=== PATIENT | female | born 1980 | race Caucasian/White ===

== ENCOUNTER 2019-01-21 12:56 | Inpatient (IN) ==
[2019-01-21] MEDS ORDERED: DULCOLAX PR PRN (17:15)
[2019-01-21] MEDS ORDERED: TUBERSOL ID ONE (17:15)
[2019-01-21] MEDS ORDERED: NICOTINE GUM BUCCAL PRN (17:15)
[2019-01-21] MEDS ORDERED: MAALOX PLUS LIQUID PO PRN (17:15)
[2019-01-21] MEDS ORDERED: ZOFRAN IV PRN (17:15)
[2019-01-21] MEDS ORDERED: IMODIUM PO PRN ×2 (17:15)
[2019-01-21] MEDS ORDERED: ZOFRAN IM PRN (17:15)
[2019-01-21] MEDS ORDERED: PHENOBARBITAL IV PRN (17:15)
[2019-01-21] MEDS ORDERED: SENOKOT PO PRN (17:15)
[2019-01-21] MEDS ORDERED: D5W 1,000 ML IV PRN (17:15)
[2019-01-21] MEDS ORDERED: NICODERM PATCH TD PRN (17:15)
[2019-01-21 18:27] LABS: HEMATOCRIT 29.2 % (37.0-47.0); HEMOGLOBIN 9.5 g/dL (12.0-16.0); MCH 25.4 PG (27-31); MCHC 32.5 g/dL (33-37); MCV 78.1 FL (81-99); MPV 10.4 FL (7.4-10.4); RBC 3.74 XMIL (4.2-5.4); RDW 21.4 % (11.5-14.5); WBC 9.24 X1000 (4.8-10.8)
[2019-01-21 18:37] LABS: UR AMPHETAMINES QUAL NONE DETECTED (NONE DETECT); UR BARBITUATES QUAL NONE DETECTED (NONE DETECT); UR BENZODIAZEPIN QUAL PRESUMPTIVE POSITIVE (NONE DETECT); UR CANNABINOIDS QUAL NONE DETECTED (NONE DETECT); UR COCAINE QUAL NONE DETECTED (NONE DETECT); UR METHADONE QUAL NONE DETECTED (NONE DETECT); UR METHAMPHETAMINE QUAL NONE DETECTED (NONE DETECT); UR OPIATES QUAL PRESUMPTIVE POSITIVE (NONE DETECT); UR OXYCODONE QUAL NONE DETECTED (NONE DETECT); UR PCP QUAL NONE DETECTED (NONE DETECT); UR PROPOXYPHENE QUAL NONE DETECTED (NONE DETECT); UR TCA QUAL NONE DETECTED (NONE DETECT)
[2019-01-21 18:46] LABS: INR 1.34; PROTIME 17.2 Seconds (11.0-16.0)
[2019-01-21 19:03] LABS: AGAP 13; ALBUMIN 2.5 g/dL (3.5-5.0); ALKALINE PHOSPHATASE 122 U/L (32-104); AMYLASE 63 U/L (20-200); BUN 8 mg/dL (8-22); CALCIUM 7.4 mg/dL (8.8-10.2); CHLORIDE 97 mmol/L (98-107); COSMO 269; CREATININE 0.8 mg/dL (0.5-0.9); ESTIMATED GFR > 60; GLUCOSE 115 mg/dL (70-104); GOT 77 U/L (10-30); GPT 41 U/L (10-36); LIPASE 31 U/L (13-60); POTASSIUM 3.7 mmol/L (3.5-5.1); SODIUM 135 mmol/L (136-145); TCO2 25 mmol/L (25-35); TOTAL PROTEIN 5.6 g/dL (6.3-8.3)
[2019-01-21 19:24] LABS: URINE SOURCE CLEAN CATCH
[2019-01-21 19:50] LABS: BILIRUBIN URINE 2+ (NEGATIVE); BLOOD URINE 3+ (NEGATIVE); CLARITY VERY CLOUDY (CLEAR); COLOR AMBER; GLUCOSE URINE NEGATIVE (NEGATIVE); KETONE URINE 1+(Small) mg/dL (NEGATIVE); LEUKOCYTES URINE 2+ (NEGATIVE); NITRITE URINE POSITIVE (NEGATIVE); PROTEIN URINE 2+(100 mg/dL) mg/dL (NEGATIVE); UROBILINOGEN URINE 8 mg/dL
[2019-01-21 19:53] LABS: URINE BACTERIA 2+ /HFP; URINE CAST NONE SEEN /LPF; URINE CRYSTAL CA OXALATE PRESENT /HPF; URINE EPITHELIAL CELLS <10 /HPF (<10); URINE RBC TNTC /HPF (<10); URINE YEAST NONE SEEN /HPF
[2019-01-21 19:54] LABS: URINE SMALL ROUND CELLS TRANSITIONAL PRESENT
[2019-01-21] MEDS: SEROQUEL PO PRN (21:56)
[2019-01-21] MEDS: MOTRIN PO PRN (21:56)
[2019-01-21] MEDS: TORADOL IV PRN (22:00)
[2019-01-21] MEDS: ZOFRAN ODT PO PRN (22:27)
[2019-01-22] MEDS ORDERED: BENTYL PO PRN (06:41)
[2019-01-22] MEDS ORDERED: SALINE LOCK IV FLUID XX ONE (06:41)
[2019-01-22] MEDS: PROTONIX PO SCH (07:38)
[2019-01-22] MEDS: FOLIC ACID PO SCH (08:49)
[2019-01-22] MEDS: LIBRIUM PO SCH ×3 (08:49→20:13)
[2019-01-22] MEDS: THERA M PLUS PO SCH (08:49)
[2019-01-22] MEDS: VITAMIN B-1 PO SCH (08:49)
[2019-01-22] MEDS ORDERED: M.V.I.-12 10 ML, FOLIC ACID 1 MG, MAGNESIUM SULFATE 1 GM, THIAMINE 100 MG in NS 1,000 ML IV ONE ×2 (09:00→19:00)
[2019-01-22] MEDS: TORADOL IV PRN ×2 (11:47→22:42)
[2019-01-22] MEDS: ROBAXIN PO PRN ×2 (11:47→22:42)
[2019-01-22] MEDS: PHENERGAN PO PRN (16:26)
[2019-01-22 17:43] LABS: BILIRUBIN URINE NEGATIVE (NEGATIVE); BLOOD URINE NEGATIVE (NEGATIVE); COLOR YELLOW; GLUCOSE URINE NEGATIVE (NEGATIVE); KETONE URINE NEGATIVE (NEGATIVE); LEUKOCYTES URINE 2+ (NEGATIVE); NITRITE URINE POSITIVE (NEGATIVE); PROTEIN URINE NEGATIVE (NEGATIVE); UROBILINOGEN URINE 1 mg/dL
[2019-01-22 17:58] LABS: CLARITY SLIGHTLY CLOUDY (CLEAR)
[2019-01-22 18:00] LABS: URINE BACTERIA 4+ /HFP; URINE CAST NONE SEEN /LPF; URINE CRYSTAL NONE SEEN /HPF; URINE EPITHELIAL CELLS <10 /HPF (<10); URINE SOURCE CLEAN CATCH; URINE WBC TNTC /HPF (<10); URINE YEAST NONE SEEN /HPF
[2019-01-22] MEDS ORDERED: SUBUTEX SL ONE ×2 (19:11→21:00)
[2019-01-22] MEDS: ZOSYN 3.375 GM in NS 50 ML IV SCH (20:09)
[2019-01-22] MEDS: SEROQUEL PO PRN (21:35)
--- NOTE | 2019-01-23 00:21 | PROGRESS NOTE ---
DATE: 01/22/2019 SUBJECTIVE: Patient notes overall she feels quite terrible. I checked on her again tonight. Notes that her symptoms have improved slightly, but still overall she is having muscle aches, myalgias, mild tremors, nausea. No real vomiting. Denies hematemesis, hematochezia. Is having some abdominal pain as well as dysuria. PHYSICAL EXAMINATION: Vital Signs: Reviewed and stable. General: Patient is awake, alert, currently in no respiratory distress, but obviously ill appearing secondary to withdrawal symptoms. HEENT: Normocephalic. Neck: Supple. Cardiovascular: Regular rate. No murmurs. Chest: Clear and nonlabored. Abdomen: Soft, nondistended, nontender. ASSESSMENT: 1. Nausea and vomiting. 2. Abdominal pain. 3. Myalgias. 4. Likely urinary tract infection. 5. Others. PLAN: We will continue patient in the hospital. Continue Librium taper. Continue counseling by myself. We will place her on low-dose of Subutex tonight. The patient has been on methadone in the past. Therefore, cannot go straight to Suboxone. We will also treat for urinary infection. cc: Gerhard Rodriguez MD
[2019-01-23] MEDS: LIBRIUM PO SCH ×4 (01:58→20:19)
[2019-01-23] MEDS: ZOSYN 3.375 GM in NS 50 ML IV SCH ×4 (01:59→20:19)
[2019-01-23] MEDS: PROTONIX PO SCH (06:19)
[2019-01-23] MEDS: ROBAXIN PO PRN (06:22)
[2019-01-23] MEDS: THERA M PLUS PO SCH ×2 (07:48→09:47)
[2019-01-23] MEDS: FOLIC ACID PO SCH ×2 (07:48→09:46)
[2019-01-23] MEDS: VITAMIN B-1 PO SCH ×2 (07:48→09:48)
[2019-01-23] MEDS: SYNTHROID PO SCH ×2 (07:48→09:47)
[2019-01-23] MEDS: TORADOL IV PRN ×2 (07:58→21:27)
[2019-01-23] MEDS: PHENERGAN PO PRN ×2 (08:09→13:54)
[2019-01-23] MEDS: NORCO-5 PO PRN ×2 (08:34→21:34)
[2019-01-23] MEDS: TYLENOL PO PRN (20:19)
[2019-01-23] MEDS ORDERED: CARDIZEM IV ONE (20:54)
--- NOTE | 2019-01-23 21:19 | Diag Imaging Result Doc PS360 ---
EXAM: CHEST-1 VIEW HISTORY: SEPSIS PROTOCOL TECHNIQUE: Chest single view COMPARISON: None. FINDINGS: The lungs are well expanded. The heart is not enlarged. The vessels are not distended. There are no infiltrates. No effusion identified. IMPRESSION: Negative exam. Electronically signed by Indra White 01/23/2019 9:16 PM
[2019-01-23 21:55] LABS: BASO# 0.04 X1000 (0.0-0.2); BASO% 0.2 % (0.0-0.8); EOS# 0.04 X1000 (0.0-0.7); EOS% 0.2 % (0.0-10.0); HEMATOCRIT 30.6 % (37.0-47.0); HEMOGLOBIN 9.8 g/dL (12.0-16.0); IMM GRAN# 0.04 X1000 (0.0-0.04); IMM GRAN% 0.2 % (0.0-0.5); LYMPH# 1.26 X1000 (1.2-3.4); LYMPH% 6.4 % (20.5-51.1); MCH 25.8 PG (27-31); MCV 80.5 FL (81-99); MONO% 1.5 % (1.7-9.3); MPV 11.1 FL (7.4-10.4); NEUT# 18.08 X1000 (1.4-6.5); NEUT% 91.5 % (42.2-75.2); PLT 347 X1000 (130-400); RDW 21.9 % (11.5-14.5); WBC 19.76 X1000 (4.8-10.8)
[2019-01-23 22:01] LABS: AGAP 14; ALBUMIN 2.3 g/dL (3.5-5.0); ALKALINE PHOSPHATASE 120 U/L (32-104); BUN 18 mg/dL (8-22); CALCIUM 7.2 mg/dL (8.8-10.2); CHLORIDE 104 mmol/L (98-107); CK PROFILE 29 U/L (24-173); COSMO 278; CREATININE 0.9 mg/dL (0.5-0.9); ESTIMATED GFR > 60; GLUCOSE 165 mg/dL (70-104); GOT 42 U/L (10-30); GPT 31 U/L (10-36); POTASSIUM 3.8 mmol/L (3.5-5.1); SODIUM 136 mmol/L (136-145); TCO2 18 mmol/L (25-35); TOTAL PROTEIN 5.1 g/dL (6.3-8.3)
[2019-01-23 22:06] LABS: INR 1.4; PROTIME 17.9 Seconds (11.0-16.0)
[2019-01-23 22:07] LABS: PTT 39.3 Seconds (22.3-41.8)
[2019-01-23 22:09] LABS: BANDS 7 % (0-1); SEGS 85 % (42-75)
[2019-01-23 22:10] LABS: ANISOCYTOSIS 2+; LYMPHS 7 % (21-51); MICROCYTOSIS 2+; MONO 2 % (1-9); POIKILOCYTOSIS 2+; POLYCHROM 2+; TARGET CELLS 1+
[2019-01-23 22:11] LABS: OVALOCYTES 1+
--- NOTE | 2019-01-24 01:35 | PROGRESS NOTE ---
DATE: 01/23/2019 SUBJECTIVE: Patient states she still feels terrible, still has muscle aches. Has some difficulty urinating, but overall does think that she is feeling somewhat better. PHYSICAL EXAMINATION: Vital Signs: Temperature 98.9 degrees, pulse 89, respiratory 18, BP 113/82. General: Patient is awake, alert. She is pleasant to talk with. HEENT: Normocephalic. Neck: Supple. Cardiovascular: Regular rate. Chest: Clear and nonlabored. Abdomen: Soft, nondistended. Extremities: Moves all extremities. Neurologic: No changes. ASSESSMENT: 1. Gram-negative rods urinary tract infection. Urine currently is growing gram-negative rods. We will continue Zosyn. 2. Alcohol abuse, withdrawal and stabilization. Continue to wean high-dose Librium taper. Continue counseling. cc: Gerhard Rodriguez MD
[2019-01-24] MEDS: LIBRIUM PO SCH ×4 (02:42→17:52)
[2019-01-24] MEDS: ZOSYN 3.375 GM in NS 50 ML IV SCH ×4 (02:43→20:31)
[2019-01-24] MEDS: PROTONIX PO SCH ×2 (06:01→06:04)
[2019-01-24] MEDS: FOLIC ACID PO SCH (08:15)
[2019-01-24] MEDS: SYNTHROID PO SCH (08:15)
[2019-01-24] MEDS: VITAMIN B-1 PO SCH (08:15)
[2019-01-24] MEDS: THERA M PLUS PO SCH (08:16)
[2019-01-24] MEDS: NORCO-5 PO PRN ×2 (08:18→17:52)
[2019-01-24] MEDS: PHENERGAN PO PRN (17:52)
--- NOTE | 2019-01-24 18:03 | PROGRESS NOTE ---
DATE: 01/24/2019 SUBJECTIVE: Patient states she is feeling a little bit better. She is having no tremors. Alcohol withdrawal symptoms have improved. Still having some low-grade fevers. No chills. Still having lots of back pain from her recent fracture. PHYSICAL EXAMINATION: Vital Signs: Temperature 97, pulse 109, respiratory rate 18, BP 100/76. General: Patient is awake. She is in no current respiratory distress. HEENT: Normocephalic. Neck: Supple. CARDIOVASCULAR: Regular rate. No murmurs. Chest: Clear, nonlabored. Abdomen: Soft, nondistended. Extremities: Moves all extremities. She does have lumbar back pain. ASSESSMENT: 1. E coli urinary tract infection. We will continue Zosyn. 2. L3, L4 lumbar fracture with resultant pain. 3. Nausea and vomiting, resolved. 4. Abdominal pain. 5. Myalgias. 6. Tremors. 7. Paresthesias. 8. Paroxysmal sweating. 9. Alcohol abuse, withdrawal and stabilization. 10. Chronic anxiety, depression. PLAN: We will continue patient in the hospital. Continue to wean Librium. Will use [place] p.r.n. and will follow. cc: Gerhard Rodriguez MD
--- NOTE | 2019-01-24 18:55 | HISTORY AND PHYSICAL ---
CHIEF COMPLAINT: Nausea and vomiting. HISTORY OF PRESENT ILLNESS: The patient is a 39-year-old female who presented to [facility] secondary to nausea, vomiting, abdominal pain, myalgias, tremors and paresthesias. She notes that she has been drinking heavily and has been attempting to stop. SOCIAL HISTORY: She is , she is unemployed. Lives at home in [place], [place]. PAST MEDICAL HISTORY: She was recently seen at [facility] for pancreatitis in 09/2018. Also found to have stress fractures at L3 and L4. This is nonsurgical. She has a history of DTs and psychiatric hospitalizations. She fell last week, fracturing her L3 and L4. History of blackouts, head injuries, concussions and seizures, all alcohol related. History of pancreatitis, alcohol related. Chronic anxiety and depression. MEDICATIONS: Multivitamins, Synthroid. ALLERGIES: No known drug allergies. REVIEW OF SYSTEMS: CIWA score is 24 secondary to nausea, vomiting, abdominal pain, 30-pound weight loss over the past month or 2, auditory and visual hallucinations, anxiety, agitation, tachycardia, elevated blood pressure, tremors, myalgias, history of seizures and blackouts, history of blood in her stools secondary to gastritis from alcohol. Denies any headaches, blurred vision or change in her vision. Denies any focalized numbness, tingling or weakness in her extremities. Denies dysuria. No frequency or urgency. Denies constipation, melena or hematochezia. SUBSTANCE ABUSE HISTORY: The patient has been in detoxification multiple times over the past 14 years. She has had several psychiatric hospitalizations. She was just seen in the ER due to alcohol-related injuries. She is unemployed secondary to her alcoholism. Started drinking at age 29, currently is drinking up to 2 fifths of rum per day. FAMILY HISTORY: Noncontributory. PHYSICAL EXAMINATION: VITAL SIGNS: Reviewed and stable. GENERAL: The patient is awake, alert, currently in no respiratory distress. HEENT: Normocephalic, atraumatic. RYANN. NECK: Supple. No JVD. CARDIOVASCULAR: Regular rate. No murmurs. CHEST: Clear, nonlabored. No crackles. ABDOMEN: Soft, nondistended, nontender. NEUROLOGIC: No focal changes. ASSESSMENT: 1. Nausea and vomiting. 2. Abdominal pain. 3. Myalgias. 4. Paresthesias. 5. Tremors. 6. Alcohol abuse, withdrawal and stabilization. 7. Chronic anxiety and depression. PLAN: We will admit the patient to the hospital, high-dose Librium taper, symptomatic medications as needed. The patient appears to have a urinary infection. We will check a culture, place her on antibiotics. We will use Toradol for her L3-L4 fracture, and we will follow. cc: Gerhard Rodriguez MD
[2019-01-24] MEDS: SEROQUEL PO PRN (20:31)
[2019-01-24] MEDS: ATARAX PO PRN (22:58)
[2019-01-25] MEDS: ZOSYN 3.375 GM in NS 50 ML IV SCH ×2 (02:20→08:48)
[2019-01-25] MEDS: PHENERGAN PO PRN (04:47)
[2019-01-25] MEDS: NORCO-5 PO PRN ×2 (04:47→10:53)
[2019-01-25] MEDS: PROTONIX PO SCH (06:20)
[2019-01-25 07:07] LABS: HEMOGLOBIN 8.3 g/dL (12.0-16.0); MCH 25.6 PG (27-31); MCHC 31.9 g/dL (33-37); MCV 80.2 FL (81-99); MPV 11.3 FL (7.4-10.4); RBC 3.24 XMIL (4.2-5.4); RDW 22.4 % (11.5-14.5); WBC 5.73 X1000 (4.8-10.8)
[2019-01-25 07:59] LABS: AGAP 9; ALBUMIN 2.1 g/dL (3.5-5.0); ALKALINE PHOSPHATASE 119 U/L (32-104); BUN 11 mg/dL (8-22); CHLORIDE 107 mmol/L (98-107); COSMO 275; CREATININE 0.6 mg/dL (0.5-0.9); ESTIMATED GFR > 60; GLUCOSE 69 mg/dL (70-104); GOT 30 U/L (10-30); GPT 23 U/L (10-36); MAGNESIUM 1.6 mg/dL (1.5-2.7); POTASSIUM 3.6 mmol/L (3.5-5.1); SODIUM 139 mmol/L (136-145); TCO2 23 mmol/L (25-35); TOTAL PROTEIN 4.8 g/dL (6.3-8.3)
[2019-01-25] MEDS: THERA M PLUS PO SCH (08:47)
[2019-01-25] MEDS: VITAMIN B-1 PO SCH (08:47)
[2019-01-25] MEDS: FOLIC ACID PO SCH (08:47)
[2019-01-25] MEDS: SYNTHROID PO SCH (08:47)
[2019-01-25] MEDS: LIBRIUM PO SCH (08:47)
[2019-01-25] MEDS: LEVAQUIN PO SCH (10:52)
[2019-01-25] MEDS: ATARAX PO PRN ×2 (10:53→18:20)
[2019-01-25] MEDS: CALTRATE 600 PO SCH ×2 (10:53→20:14)
[2019-01-25] MEDS: TORADOL IV PRN ×2 (12:35→20:21)
[2019-01-25] MEDS: ROBAXIN PO PRN (12:35)
--- NOTE | 2019-01-25 18:19 | PROGRESS NOTE ---
DATE: 01/25/2019 SUBJECTIVE: Patient overall notes that she is feeling better, but still having lots of back pain and nausea. It hurts when she gets out of bed. Denies any fevers or chills. OBJECTIVE: Vital Signs: She is afebrile. Temperature is 98.7 degrees, pulse 109, respiratory rate 20, BP 100/76. General: The patient is awake, very pleasant. She is in no current respiratory distress. HEENT: Normocephalic. Neck: Supple. CARDIOVASCULAR: Regular rate. Chest: Clear. Abdomen: Soft. Extremities: Moves all extremities. ASSESSMENT: 1. Nausea and vomiting. 2. Abdominal pain. 3. Myalgias. 4. Paresthesias. 5. Paroxysmal sweating. 6. Lumbar fractures. 7. Alcohol abuse withdrawal and continued stabilization. PLAN: 1. We will continue patient in the hospital. 2. Continue p.r.n. [place]. 3. Continue to wean Librium, if tolerated. 4. Hopefully can discharge home. Unfortunately, we will not be able to use naltrexone currently as she is requiring pain medication due to her spinal fractures. cc: Gerhard Rodriguez MD
[2019-01-25] MEDS: SEROQUEL PO PRN (20:20)
[2019-01-25] MEDS ORDERED: LIBRIUM PO SCH (21:00)
[2019-01-25] MEDS: DESYREL PO PRN ×2 (21:59→23:10)
[2019-01-25] MEDS: ZOFRAN ODT PO PRN (22:01)
[2019-01-26] MEDS: ATARAX PO PRN (01:24)
[2019-01-26] MEDS: MOTRIN PO PRN (05:41)
[2019-01-26] MEDS: PROTONIX PO SCH (06:18)
[2019-01-26 08:01] VITALS: BP 96/68
[2019-01-26] MEDS ORDERED: LIBRIUM PO SCH (09:00)
[2019-01-26] MEDS: CALTRATE 600 PO SCH (09:24)
[2019-01-26] MEDS: ZOFRAN ODT PO PRN (09:24)
[2019-01-26] MEDS: VITAMIN B-1 PO SCH (09:25)
[2019-01-26] MEDS: THERA M PLUS PO SCH (09:25)
[2019-01-26] MEDS: SYNTHROID PO SCH (09:25)
[2019-01-26] MEDS: FOLIC ACID PO SCH (09:25)
[2019-01-26] MEDS: TYLENOL PO PRN (09:25)
[2019-01-26] MEDS: LEVAQUIN PO SCH (09:26)
--- NOTE | 2019-01-28 09:22 | DISCHARGE SUMMARY ---
ADMISSION DATE: 01/21/2019 DISCHARGE DATE: 01/26/2019 DISCHARGE DIAGNOSES: 1. Nausea and vomiting. 2. Abdominal pain. 3. Myalgias. 4. Escherichia coli urinary tract infection. 5. Sepsis resolved. 6. L4-5 fracture, recent prior to hospitalization due to fall. CONSULTATIONS: None. PROCEDURES: None. BRIEF HOSPITAL COURSE: The patient was admitted to the hospital secondary to acute alcoholism and alcohol withdrawal. She had recently had a fall creating a L4-5 fracture. She was admitted to the hospital placed on high-dose Librium taper. She did require an occasional [place] due to her fracture vertebrae and pain. She was noted to start having elevated fever, chills and tachycardia. She was diagnosed with sepsis. Her urine culture did eventually grow E coli. She had actually already been on Rocephin for a presumed urinary tract infection. Thankfully, this was sensitive and she continued to improve. Otherwise, she had an uneventful hospital course prolonged secondary to her alcohol withdrawal, pain control and sepsis. DISPOSITION: Patient will be discharged home. She will continue with [place] for a few more days due to her fracture. This precluded us for giving her medication assisted treatment such as naltrexone. However, again we did discuss with patient that once her pain is better, she needs to start on naltrexone to assist with prevention of recurrent alcoholism. Suggest the patient continues to follow up outpatient with treatment facility of choice. She needs outpatient life counseling as well as drug counseling. Greater than 30 minutes was spent in total care. cc: Gerhard Rodriguez MD
== END 2019-01-26 12:32 | disposition home or self-care (01) | DRG 896 ==
LOC: P.MEDSURG 14:39
PROVIDERS: ADMIT Family Medicine; ATTEND Family Medicine
CPT/HCPCS: 71010; 71045; 80053; 80104; 80301; 80305; 80307; 80320; 81001; 82055; 82150; 82550; 83605; 83690; 83735; 84484; 84703; 85025; 85027; 85610; 85730; 87040; 87077; 87088; 87186; A9270; G0431; G0434; G0477; G0480; G6040; J1885; J2405; J2543; J3411; J3475; J7030